=== PATIENT | male | born 1995 | race Caucasian/White ===

== ENCOUNTER 2017-07-29 02:44 | Emergency (ER) | payer OTHER ==
[~2017-07-29] VITALS: Ht 170.1 cm; Wt 74.8 kg
[~2017-07-29 02:44] MED LIST: AMOXIL500 MG PO; KEFLEX500 MG PO; MIRALAX17 GM/PACK PO; MOTRIN600 MG PO; MOTRIN800 MG PO; Miralax Powder255 GM PO; NKHM; TYLENOL W/CODEI1 TA2 PO; VICODIN 5-3001 EACH PO
[2017-07-29 03:25] LABS: BASO % 0.7 % (0.0-1.0); EOS # 0.1 10*3/uL (0.0-0.4); EOS % 1.1 % (1.0-4.0); HEMATOCRIT 41.2 % (42.0-52.0); HEMOGLOBIN 14.8 g/dl (14.0-18.0); LYMPH # 1.6 10*3/uL (1.3-4.4); LYMPH % 35.6 % (27.0-41.0); MEAN CELL VOLUME 90.7 fl (80.0-94.0); MEAN CORPUSCULAR HGB 32.6 pg (27.0-31.0); MEAN CORPUSCULAR HGB CONC 35.9 g/dl (33.0-37.0); MEAN PLATELET VOLUME 8.5 fl (9.6-12.3); MONO # 0.3 10*3/uL (0.1-1.0); MONO % 6.8 % (3.0-9.0); NEUT # 2.5 10*3/uL (2.3-7.9); NEUT % 55.8 % (47.0-73.0); PLATELET COUNT AUTOMATED 174 10*3/uL (130-400); RED BLOOD COUNT 4.54 10*6/uL (4.50-5.90); RED CELL DISTRI WIDTH 10.9 % (0-14.5); WHITE BLOOD COUNT 4.4 10*3/uL (4.8-10.8)
[2017-07-29 03:38] LABS: ALBUMIN 4.3 gm/dl (3.1-4.5); ALKALINE PHOSPHATASE 64 U/L (45-117); BUN 14 mg/dl (7-24); CHLORIDE 106 mmol/L (98-107); CREATININE 1.06 mg/dL (0.70-1.30); LIPASE 134 U/L (73-393); POTASSIUM 3.5 mmol/L (3.5-5.1); SGOT/AST 17 IU/L (3-35); SGPT/ALT 21 U/L (12-78); SODIUM 141 mmol/L (136-145); TOTAL PROTEIN 7.4 gm/dL (6.4-8.2)
[2017-07-29 04:25] LABS: BILIRUBIN 1+ (NEGATIVE); BLOOD 3+ (NEGATIVE); CLARITY SL CLOUDY (CLEAR); COLOR YELLOW (YELLOW); GLUCOSE NEGATIVE (NEGATIVE); KETONE TRACE (NEGATIVE); LEUKO ESTERASE NEGATIVE (NEGATIVE); NITRITE NEGATIVE (NEGATIVE); PH 6.5 (5.0-9.0)
[2017-07-29 04:33] LABS: BACTERIA 1+; CALCIUM OXALATE CRYSTALS 1+; EPITHELIAL CELLS 0-2; RBC TNTC rbc/hpf (0-2)
== END 2017-07-29 05:11 | disposition home or self-care (01) ==
LOC: ED 02:44
PROVIDERS: Emergency Medicine
DX: N20.0 Calculus of kidney (principal); Z90.89 Acquired absence of other organs; Z79.899 Other long term (current) drug therapy

== ENCOUNTER 2018-08-23 22:58 | Emergency (ER) | payer SELFPAY ==
[~2018-08-23] VITALS: Ht 180.3 cm; Wt 72.6 kg
[2018-08-24] MEDS ORDERED: AMOXICILLIN500 M2 PO (00:11)
== END 2018-08-24 00:27 | disposition home or self-care (01) ==
LOC: ED 22:58
DX: J02.9 Acute pharyngitis, unspecified (principal)

== ENCOUNTER 2020-03-26 09:08 | Emergency (ER) | payer OTHER ==
[~2020-03-26] VITALS: Wt 83.9 kg
[~2020-03-26 09:08] MED LIST changes: +AMOXICILLIN500 M2 PO
[2020-03-26 10:28] LABS: BASO # 0.1 10*3/uL (0.0-0.1); BASO % 0.6 % (0.0-1.0); EOS # 0.1 10*3/uL (0.0-0.4); EOS % 0.6 % (1.0-4.0); HEMATOCRIT 41.3 % (42.0-52.0); LYMPH # 1.9 10*3/uL (1.3-4.4); LYMPH % 24.2 % (27.0-41.0); MEAN CELL VOLUME 94.1 fl (80.0-94.0); MEAN CORPUSCULAR HGB 32.1 pg (27.0-31.0); MEAN CORPUSCULAR HGB CONC 34.1 g/dl (33.0-37.0); MEAN PLATELET VOLUME 8.7 fl (9.6-12.3); MONO # 0.6 10*3/uL (0.1-1.0); MONO % 7.6 % (3.0-9.0); NEUT # 5.2 10*3/uL (2.3-7.9); NEUT % 66.9 % (47.0-73.0); PLATELET COUNT AUTOMATED 201 10*3/uL (130-400); RED BLOOD COUNT 4.39 10*6/uL (4.50-5.90); WHITE BLOOD COUNT 7.8 10*3/uL (4.8-10.8)
[2020-03-26 10:45] LABS: ALKALINE PHOSPHATASE 71 U/L (45-117); BUN 15 mg/dl (7-24); CHLORIDE 110 mmol/L (98-107); CREATININE 0.86 mg/dL (0.70-1.30); LIPASE 177 U/L (73-393); POTASSIUM 3.8 mmol/L (3.5-5.1); SGOT/AST 12 IU/L (3-35); SGPT/ALT 22 U/L (12-78); SODIUM 141 mmol/L (136-145)
== END 2020-03-26 11:28 | disposition home or self-care (01) ==
LOC: ED 09:08
PROVIDERS: Physician Assistant
DX: R19.7 Diarrhea, unspecified (principal)

== ENCOUNTER → 2020-05-14 | Outpatient (CLI) | payer OTHER | END | disposition home or self-care (01) | LOC: COVID19 13:17 | PROVIDERS: ATTEND Internal Medicine | DX: Z20.828 Contact with and (suspected) exposure to other viral communicable diseases (principal) ==

== ENCOUNTER 2021-11-14 12:05 | Emergency (ER) | payer SELFPAY ==
[~2021-11-14] VITALS: Wt 90.7 kg
[2021-11-14] MEDS ORDERED: SEPTDS PO (12:18)
[2021-11-14] MEDS ORDERED: CEPHALEXIN500 M1 PO (12:18)
== END 2021-11-14 12:50 | disposition home or self-care (01) ==
LOC: ED 12:05
DX: L08.89 Other specified local infections of the skin and subcutaneous tissue (principal)

== ENCOUNTER 2023-06-01 19:37 | Emergency (ER) | payer BC ==
[~2023-06-01 19:37] MED LIST changes: +CEPHALEXIN500 M1 PO; +SEPTDS PO
== END 2023-06-01 20:11 | disposition left against medical advice (07) ==
LOC: ED 19:37
DX: M54.50 Low back pain, unspecified (principal); R20.0 Anesthesia of skin; Z53.21 Procedure and treatment not carried out due to patient leaving prior to being seen by health care provider

== ENCOUNTER 2023-12-06 22:11 | Emergency (ER) | payer MEDICAID ==
[~2023-12-06] VITALS: Ht 180.3 cm; Wt 77.1 kg
[2023-12-06] MEDS ORDERED: DOCUSATE SODIUM 100 MG/10 ML UDC OT ONE (22:30)
[2023-12-07] MEDS ORDERED: Amoxicillin/Clavulanate Pota 875 MG TAB PO ONE (00:30)
[2023-12-07] MEDS ORDERED: Ketorolac Tromethamine 60 MG/2 ML VIAL IM ONE (00:30)
[2023-12-07] MEDS ORDERED: AMOX-CLAV 875-1 EACH PO (00:34)
== END 2023-12-07 00:47 | disposition home or self-care (01) ==
LOC: ED 22:11
DX: H61.23 Impacted cerumen, bilateral (principal); Z98.890 Other specified postprocedural states; Z90.89 Acquired absence of other organs

== ENCOUNTER 2024-04-02 14:27 | Emergency (ER) | payer SELFPAY ==
[~2024-04-02] VITALS: Wt 79.8 kg
[~2024-04-02 14:27] MED LIST changes: +AMOX-CLAV 875-1 EACH PO
[2024-04-02] MEDS ORDERED: Ketorolac Tromethamine 30 MG/ML VIAL IV ONE (14:55)
[2024-04-02] MEDS ORDERED: SODIUM CHLORIDE 0.9% 1,000 ML IV ONE (14:55)
[2024-04-02 15:03] LABS: BASO # 0.1 10*3/uL (0.0-0.1); BASO % 0.8 % (0.0-1.0); EOS % 0.5 % (1.0-4.0); HEMATOCRIT 43.5 % (42.0-52.0); LYMPH # 2.1 10*3/uL (1.3-4.4); LYMPH % 35.7 % (27.0-41.0); MEAN CELL VOLUME 92.4 fl (80.0-94.0); MEAN CORPUSCULAR HGB 32.5 pg (27.0-31.0); MEAN CORPUSCULAR HGB CONC 35.2 g/dl (33.0-37.0); MEAN PLATELET VOLUME 8.4 fl (9.6-12.3); MONO # 0.4 10*3/uL (0.1-1.0); NEUT # 3.4 10*3/uL (2.3-7.9); NEUT % 56.8 % (47.0-73.0); PLATELET COUNT AUTOMATED 231 10*3/uL (130-400); RED BLOOD COUNT 4.71 10*6/uL (4.50-5.90); RED CELL DISTRI WIDTH 11.1 % (0-14.5)
[2024-04-02 15:17] LABS: BUN 10 mg/dl (9-23); CHLORIDE 107 mmol/L (98-107); POTASSIUM 3.4 mmol/L (3.4-5.1)
[2024-04-02] MEDS ORDERED: MORPHINE Sulfate 2 MG/ML SYR IV ONE (15:45)
[2024-04-02 15:48] LABS: BILIRUBIN Negative (Negative); BLOOD 3+ (Negative); CLARITY Cloudy (Clear); COLOR Yellow (Yellow); GLUCOSE Negative (Negative); KETONE Trace (Negative); LEUKO ESTERASE Trace (Negative); NITRITE Negative (Negative)
[2024-04-02 15:56] LABS: BACTERIA 1+; RBC TNTC rbc/hpf (0-2)
[2024-04-02] MEDS ORDERED: CIPRO500 MG PO (18:08)
[2024-04-02] MEDS ORDERED: FLOMAX0.4 MG PO (18:08)
[2024-04-02] MEDS ORDERED: MELOXICAM15 MG PO (18:08)
== END 2024-04-02 18:46 | disposition home or self-care (01) ==
LOC: ED 14:27
PROVIDERS: Internal Medicine
DX: N20.0 Calculus of kidney (principal); R11.2 Nausea with vomiting, unspecified; Z87.442 Personal history of urinary calculi